=== PATIENT | male | born 1950 | race Hispanic/Latino ===

== ENCOUNTER 2019-09-24 12:57 | Emergency (ER) | payer MEDICARE ==
[2019-09-24 13:35] LABS: #Eosinphils 0.1 thou/uL (0.0-0.7); #Lymphocytes 2.1 thou/uL (1.20-3.40); #Monocytes 0.8 thou/uL (0.11-0.59); #Neutrophils 5.8 thou/uL (1.40-6.50); %Basophils 0.3 % (0.0-1.0); %Eosinophils 1.1 % (0.0-10.0); %Lymphocytes 24.3 % (21.0-51.0); %Monocytes 8.8 % (0.0-10.0); %Neutrophils 65.6 % (42.0-75.0); Hemoglobin 19.3 g/dL (14.0-18.0); Mean Corpuscular Hemoglobin 34.4 pg (27.0-31.0); Mean Platelet Volume 7.2 fL (7.4-10.4); Platelet Count 263 thou/uL (130-400); RBC Distribution Width 12.3 % (11.5-14.5); White Blood Cell (WBC) Count 8.8 thou/uL (4.8-10.8)
[2019-09-24 13:56] LABS: ALT (SGPT) 11 U/L (8-55); AST (SGOT) 18 U/L (5-34); Albumin 3.8 g/dL (3.4-4.8); Alkaline Phosphatase 119 U/L (40-110); Anion Gap 12 mmol/L (10-20); BUN (Urea Nitrogen) 18 mg/dL (8.4-25.7); Calc. Creatinine Clearance 0 mL/min (70-130); Calcium 8.9 mg/dL (7.8-10.44); Carbon Dioxide 29 mmol/L (23-31); Chloride 98 mmol/L (98-107); Estimated GFR-MDRD 84; Globulin 3.2 g/dL (2.4-3.5); Glucose 101 mg/dL (80-115); Potassium 3.1 mmol/L (3.5-5.1); Sodium 136 mmol/L (136-145)
--- NOTE | 2019-09-24 15:14 | RAD ---
XR Abdomen 1 View/KUB History: Abdominal pain and constipation. Inability to void Comparison: None. Findings: Paucity of bowel gas in the lower pelvis. Severe degenerative changes of the lumbar spine. Evaluation for free air is limited without an upright exam. Retained contrast versus inspissated stoo l within the ascending colon. Impression: 1. Relative paucity of bowel gas in the lower pelvis may reflect mass effect from distended urinary b ladder given history. 2. Nondilated ascending colon which contains either inspissated stool versus retained barium.
[2019-09-24 16:21] LABS: Bilirubin Negative (Negative); Blood, Urine Negative (Negative); Clarity Clear (Clear); Glucose, Urine (Dipstick) Normal (Negative); Ketone, Urine Negative (Negative); Leukocyte Negative Leu/uL (Negative); Nitrite Negative (Negative); Protein, Urine (Dipstick) Negative (Neg-Trace); Specific Gravity, Urine 1.017 (1.002-1.036); Urobilinogen Normal mg/dL (Less than 2)
== END 2019-09-24 18:08 | disposition home or self-care (01) ==
LOC: ERS 12:57
DX: R33.9 Retention of urine, unspecified (principal); I10 Essential (primary) hypertension; I48.91 Unspecified atrial fibrillation; F17.210 Nicotine dependence, cigarettes, uncomplicated; Z79.899 Other long term (current) drug therapy
CPT/HCPCS: 36415; 51702; 74018; 80053; 81003; 85025; 87086

== ENCOUNTER 2019-10-26 08:48 | Inpatient (IN) | payer MEDICARE, SELFPAY ==
[2019-10-26] MEDS ORDERED: diphenhydrAMINE 25 MG CAP PO PRN (09:25)
[2019-10-26] MEDS ORDERED: Acetaminophen 500 MG TAB PO PRN (09:25)
[2019-10-26] MEDS ORDERED: Morphine 2 MG/ML VIAL SLOW IVP PRN (09:25)
[2019-10-26] MEDS ORDERED: Ondansetron PF 4 MG/2 ML Vial IVP PRN (09:25)
[2019-10-26] MEDS ORDERED: Hyoscyamine Sulfate SL 0.125 mg Tablet SL PRN (09:25)
[2019-10-26] MEDS ORDERED: hydrALAZINE 20 MG/ML VIAL SLOW IVP PRN (09:25)
[2019-10-26] MEDS ORDERED: Oxybutynin 5 MG TAB PO PRN (09:25)
[2019-10-26] MEDS ORDERED: Phenazopyridine HCl 97.5 MG TABLET PO PRN (09:25)
[2019-10-26] MEDS ORDERED: cefTRIAXone\\ROCEPHIN 1 GM in Sodium Chloride 0.9% 100 ML IVPB SCH (09:45)
[2019-10-26] MEDS ORDERED: Phenazopyridine HCl 100 MG TAB PO PRN (09:45)
[2019-10-26] MEDS ORDERED: Sodium Chloride 0.9% 100 ML ONE (10:33)
[2019-10-26] MEDS ORDERED: cefTRIAXone\\ROCEPHIN 2 GM VIAL ONE (10:33)
[2019-10-26] MEDS ORDERED: Midazolam HCl 2 mg/2 ml Vial ONE (10:37)
[2019-10-26] MEDS ORDERED: Ketamine 50 MG/ML (10ML VIAL) ONE (10:37)
[2019-10-26] MEDS ORDERED: Fentanyl 100 MCG/2 ML VIAL ONE (10:37)
[2019-10-26] MEDS ORDERED: PROPOFOL 40 ML ONE (10:38)
[2019-10-26] MEDS ORDERED: Ondansetron PF 4 MG/2 ML Vial ONE (11:40)
--- NOTE | 2019-10-26 14:07 | OP ---
DATE OF PROCEDURE: 10/26/2019 SERVICE: Urology. POSTOPERATIVE DIAGNOSIS: Benign prostatic hypertrophy with urinary retention. POSTOP DIAGNOSIS: Benign prostatic hypertrophy with urinary retention. PROCEDURE PERFORMED: UroLift x8 implants. INDICATIONS FOR PROCEDURE: Mr. Yee is a 68-year-old male who initially presented to me with urinary retention fairly severely with very diminished ability to void. His prostate was hypertrophic both on imaging and by cystoscopy. The patient was able to void very small amounts only. He did not want to have an indwelling Suero catheter placed at the time of my visitation. I had recommended that we do some kind of procedural based treatment as Flomax alone was not sufficient to allow him to void to completion. I did tell him that given the amount of bladder damage he has already sustained there is no guarantee that even UroLift would improve his ability to void; however, this would be the simplest and quickest procedure for him to undergo especially with his untreated other comorbidities. We discussed the procedure in detail with risks and benefits and he has agreed to proceed forward. DESCRIPTION OF PROCEDURE: After identification of armband and verification of consent, the patient was brought back to the operating room where he underwent total intravenous anesthesia. He was then placed in dorsal lithotomy position and prepped and draped in the usual sterile fashion. After appropriate time-out, a 21-Algerian cystoscope with visual obturator was passed through the urethra into the bladder. The prostate was hypertrophic, had previously been encountered on outpatient cystoscopy. The bladder showed diffuse inflammation and submucosal hemorrhage from longstanding chronic bladder outlet obstruction. The bladder was thoroughly irrigated with approximately 1500 mL of normal saline through 3 separate irrigations to washout debris and retained urine within the bladder. Once thoroughly washed out, the visual obturator was switched out for the UroLift implantation device. The first implant was placed in the patient's left proximal prostate by compressing the prostate anteriorly and about 20 degrees laterally. The blue safety was released and the Nitinol needle released with the blue trigger. The tension was set and the capsular end piece placed with a olsen trigger. The UroLift was then advanced forward until the white line was seen in the keyhole and then the urethral end piece deployed with the blue release tab in the back. This was then repeated on the patient's right side towards the proximal prostate. Apical implants were also placed anteriorly on the patient's right and apically on the left and right. This resulted in a relatively nice anterior channel; however, there was still a significant amount of protrusion of the middle aspect of the prostate and the apical aspect of the prostate. Two additional implants were placed in the mid prostate in the left and right side. At the apical prostate, there was still bulging tissue below the area of the anterior implants. Therefore, a 4D type approach was performed where implants were stacked below the original implants apically, which resulted in nice opening of the apical tissue. At this point, the prostate was completely wide open. There was an excellent anterior channel from the verumontanum seen all the way into the bladder. The prostate was completely unobstructed. I did not feel any further implants were necessary. The bladder was left full and the cystoscope was removed. An 18-Algerian Suero catheter was placed with ease into the bladder and 10 mL of sterile water placed in the balloon. This was hooked up to gravity drainage. The patient was taken out of positioning, awakened, taken to PACU for recovery in stable condition. COMPLICATIONS: None. ESTIMATED BLOOD LOSS: Minimal. RETAINED TUBES AND DRAINS: 18-Algerian Suero catheter. SPECIMENS: None. IMPLANTS USED: Eight UroLift implants. DISPOSITION: The patient will be kept in the hospital as an inpatient to undergo his cardiac workup for his atrial fibrillation. He will get an echocardiogram. He will be discharged with his Suero catheter afterwards. We will plan a void trial in approximately 1 week. Job ID: [id number]
[2019-10-26 16:16] VITALS: BMI 18.8
[2019-10-26] MEDS: traMADol HCl 50 MG TAB PO PRN (18:34)
[2019-10-26] MEDS: Doxycycline 100 MG CAP PO SCH (20:26)
[2019-10-26] MEDS: Docusate 100 MG CAP PO SCH (20:27)
[2019-10-26] MEDS: Metoprolol Tartrate 50 MG TAB PO SCH (20:27)
--- NOTE | 2019-10-27 00:42 | CON ---
DATE OF CONSULTATION: 10/26/2019 REASON FOR CONSULTATION: Atrial fibrillation. HISTORY OF PRESENT ILLNESS: Mr. Yee is a 68-year-old man with a history of being unable to void and urinary retention. He underwent an UroLift surgery today. The patient did well with that. The patient was known to have atrial fibrillation. The patient states that he was in the hospital here at [facility] about five years ago, he said "21 days." He was placed on metoprolol, digoxin, and lisinopril. He has been maintained on that since then. He thinks he was on a blood thinner for a while, but at some point, stopped the blood thinner. There is a significant alcohol history, but the patient's family indicates he has not had much alcohol intake in the last month. He continues to smoke. No chest pain or pressure. MEDICATIONS: At home; he is taking; 1. Metoprolol 50 mg twice a day. 2. Digoxin, the listed dose is 0.25 mg a day. 3. Lisinopril 2.5 mg a day. He does miss occasional doses according to the family. The patient does have some exertional shortness of breath. No chest pain. says he has lost weight recently. SOCIAL HISTORY: Continues to smoke as mentioned. He has two daughters with him, they appear very supportive. PHYSICAL EXAMINATION: GENERAL: This is a 68-year-old gentleman. He is thin. VITAL SIGNS: 5 feet 7 inches, 120 pounds. Blood pressure 150/66 and pulse 80 and it is irregular. LUNGS: Clear. CARDIAC: Irregularly irregular. ABDOMEN: Soft and nontender. EXTREMITIES: Warm and dry. No clubbing or cyanosis. There is no peripheral edema. DIAGNOSTIC DATA: EKG reveals atrial fibrillation with controlled rate. LABORATORY DATA: Hemoglobin is 17.3. Creatinine is 0.67. Bilirubin is 2 and alkaline phosphatase 119. Echocardiogram was done. The ejection fraction appears to be in the 25% to 30% range, mildly dilated. Left atrium and right atrium are both dilated. ASSESSMENT: 1. Atrial fibrillation, appears longstanding probably for several years. 2. Depressed left ventricular function. It is also longstanding. 3. Recent urologic procedure with some hematuria, just had a UroLift procedure done today. PLAN: 1. At some point, I strongly consider anticoagulation, need to wait a couple weeks till the hematuria is resolved. I explained to the family the risk of embolic stroke is significant approximately 5% per year without blood thinners. 2. Discussed defibrillator implantation. The family states that they wish to make sure he is taking his medicines consistently before considering that. 3. Discussed LifeVest, but again this is a longstanding issue. I am also somewhat concerned as the rate is not controlled, could have an inappropriate defibrillator discharge with certainly do not want him to be shocked out of the fibrillation as he is not anticoagulated, if the patient does not indicate interest in the LifeVest. However, I think we should really consider the defibrillator implantation at the present time. The family wishes to hold off on that. They understand there is some risk of life-threatening arrhythmias. We have asked him to come see us in the office in a couple of weeks. Job ID: [id number]
[2019-10-27 08:01] VITALS: TEMP 98.6
[2019-10-27] MEDS: Docusate 100 MG CAP PO SCH (08:32)
[2019-10-27] MEDS: Metoprolol Tartrate 50 MG TAB PO SCH (08:32)
[2019-10-27] MEDS: Doxycycline 100 MG CAP PO SCH (08:32)
[2019-10-27] MEDS ORDERED: Lisinopril 2.5 MG TAB PO SCH (09:00)
[2019-10-27] MEDS ORDERED: Digoxin 0.25 MG TAB PO SCH ×2 (09:00)
[2019-10-27] MEDS ORDERED: Tamsulosin HCl 0.4 MG CAP PO SCH (09:00)
[2019-10-27 12:04] VITALS: BP 136/77
[2019-10-27] MEDS: traMADol HCl 50 MG TAB PO PRN (13:59)
--- NOTE | 2019-10-27 15:45 | PRG ---
DATE OF SERVICE: 10/27/2019 SUBJECTIVE: The patient states he did fine overnight. He has some mild pelvic pain. He has had irritation from his catheter. He wants his catheter to be taken out, but I told him that was not possible. Dr. Guerrero saw him in consultation in the hospital yesterday and found that he does indeed have atrial fibrillation, but no clot and depressed ejection fraction. He has recommended that he follow up with him in the office in about a week. OBJECTIVE: VITAL SIGNS: Temperature 98.6, pulse 79, respirations 14, blood pressure 101/67, and saturation 94% on room air. GENERAL: No apparent distress. Communicative and alert. CARDIOVASCULAR: Regular rate and rhythm. ABDOMEN: Soft, nontender, nondistended. Positive bowel sounds. CHEST: Nonlabored breathing. : Suero catheter in place with a translucent red urine. EXTREMITIES: No edema. ASSESSMENT/PLAN: A 68-year-old white male with benign prostatic hypertrophy and urinary retention, status post UroLift with 8 implants and diagnosis of atrial fibrillation with decreased ejection fraction, but no rapid ventricular response. From my standpoint, he can be discharged home. Dr. Guerrero has also approved his discharge. He will follow up with me in approximately 1 week for a void trial and Dr. Guerrero for cardiovascular treatment. It was recommended he will remain on all of his cardiac medications that he is currently on. However, we have elected to hold off on anticoagulation for now until his hematuria clears, which should be about 1 to 2 weeks. Job ID: [id number] [facility]
--- NOTE | 2019-10-27 16:38 | PQF ---
CLINICAL DOCUMENTATION CLARIFICATION FORM: Dear Dr. Oscar MONTERO Date: 10/27/2019 2796 Please exercise your independent, professional judgment in responding to the clarification form. Clinical indicators are provided on the bottom of this form for your review. Please check appropriate box(es): [ ] Protein Calorie Malnutrition: [ ] Mild [ ] Moderate [ ] Severe [ ] Other Malnutrition (please specify) __ [ ] Underweight without malnutrition [ ] Cachexia [ X ] Other diagnosis _EtoH abuse [ X ] Unable to determine In addition, please specify: Present on Admission (POA): [ X ] Yes [ ] No [ ] Unable to determine For continuity of documentation, please document condition throughout progress notes and discharge summary. Thank You. To be completed by CDI/Coding staff for physician review: CLINICAL INDICATORS - SIGNS / SYMPTOMS / LABS / RESULTS AND LOCATION IN 10/26 ASSESSMENT : NUTRITION DIAGNOSIS MALNUTRITION RELATED TO POOR ORAL INTAKE EVIDENCED BY MUSCLE WASTING TO TEMPLES, SHOULDER, ARMS, HANDS, AND FAT WASTING TO CHEEKS AND ARMS BMI 18.8 RISK FACTORS / RESULTS AND LOCATION IN MR CURRENT SMOKER, SIGNIFICANT HX OF ALCOHOL (CONSULT/ [facility]) 10/25 TREATMENT / RESULTS AND LOCATION IN MR DIETARY CONSULT 10/26 RECOMMENDS ENSURE ENLIVE TID Moderate Malnutrition (in acute illness) Energy Intake: <75% of estimated energy requirement for > 7 days Weight Loss: 1-2%/1 week; 5%/ 1 month; 7.5%/3 months Other: mild body fat loss; mild muscle mass loss; mild fluid accumulation; Severe Malnutrition (in acute illness) Energy Intake: = 50% of estimated energy requirement for = 5 days Weight Loss: >2%/1 week; >5%/1 month; >7.5%/3 months Other: moderate body fat loss; moderate muscle mass loss; moderate- severe fluid accumulation; 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 CDS Signature: GARETT GARCIA RN Phone #: [phone] Date: 2019 This is a permanent part of the [facility] Record [facility]
--- NOTE | 2019-10-30 06:28 | DIS ---
DATE OF ADMISSION: 10/26/2019 DATE OF DISCHARGE: 10/27/2019 ADMITTING DIAGNOSES: 1. Atrial fibrillation. 2. Benign prostatic hypertrophy with urinary retention. DISCHARGE DIAGNOSES: 1. Atrial fibrillation. 2. Benign prostatic hypertrophy with urinary retention. PROCEDURE PERFORMED: UroLift with 8 implants. Additional diagnostic procedures obtained, echocardiogram which demonstrated depressed ejection fraction and atrial fibrillation without clot. CONSULTATIONS: Obtained from Dr. Guerrero in Cardiology. BRIEF HISTORY: Mr. Yee is a 68-year-old male with BPH and urinary retention. He was found to be in atrial fibrillation on his preop labs. We recommended that he come in for cardiac workup as well as for his UroLift implantation, which was already scheduled. The full H and P can be found in the scanned portion of the [employer] System. HOSPITAL COURSE: The patient underwent his UroLift procedure uneventfully ( please see operative note for details). Postoperatively, patient was kept in the hospital with a Suero catheter. His urine was only mildly bloody. There were no clots. He underwent an echocardiogram per Dr. Guerrero's request, which demonstrated depressed ejection fraction and atrial fibrillation. Dr. Guerrero consulted with the patient and recommended that he should follow up as an outpatient and recommended he continue his current medications. We have elected to hold off anticoagulation on the current time given that the patient just had his UroLift procedure and is having gross hematuria, this should resolve probably within a week or so. Other than that, the patient did very well and Dr. Guerrero felt that he could go home and follow up as an outpatient. He was then discharged with his Suero catheter in place. DISPOSITION: Discharged to home with Suero. DISCHARGE CONDITION: Stable. DISCHARGE MEDICATIONS: Patient resume all of his home medications, but no aspirin or blood thinners at the current time. He should also remain on his tamsulosin. DISCHARGE INSTRUCTIONS: Were explained to the patient. He will follow up with me in approximately 1 week for a void trial and with Dr. Guerrero as well in about 1- 2 weeks for his heart management. Job ID: [id number] [facility]
== END 2019-10-27 14:15 | disposition home or self-care (01) | DRG 726 ==
LOC: SURG B 09:16
PROVIDERS: ADMIT Urology; ATTEND Urology
PROC: 0T7D8DZ Dilation of Urethra with Intraluminal Device, Via Natural or Artificial Opening Endoscopic (ICD-10-PCS; principal; 2019-10-26)
DX: N40.1 Benign prostatic hyperplasia with lower urinary tract symptoms (principal); I48.11 Longstanding persistent atrial fibrillation; R33.8 Other retention of urine; F10.10 Alcohol abuse, uncomplicated; R31.0 Gross hematuria
CPT/HCPCS: 93306; C1889; J0696; J2250; J2405; J2704; J3010; J3490; Q0163

== ENCOUNTER 2021-09-06 15:16 | Inpatient (IN) | payer MEDICARE ==
[~2021-09-06 15:16] MED LIST: Iopamidol-370 76% 500 ML 1 ML ONE
[2021-09-06 16:18] LABS: #Lymphocytes 0.5 thou/uL (1.20-3.40); #Monocytes 0.8 thou/uL (0.11-0.59); #Neutrophils 10.3 thou/uL (1.40-6.50); %Basophils 0.1 % (0.0-1.0); %Eosinophils 0.1 % (0.0-10.0); %Lymphocytes 4.4 % (21.0-51.0); %Monocytes 6.9 % (0.0-10.0); %Neutrophils 88.6 % (42.0-75.0); Hemoglobin 17.2 g/dL (14.0-18.0); Mean Corpuscular HGB CONC 33.9 g/dL (32.0-36.0); Mean Corpuscular Hemoglobin 35.7 pg (27.0-31.0); Mean Platelet Volume 7.2 fL (7.4-10.4); Platelet Count 240 thou/uL (130-400); RBC Distribution Width 12.3 % (11.5-14.5); Red Blood Cell (RBC) Count 4.81 mill/uL (4.70-6.10); White Blood Cell (WBC) Count 11.6 thou/uL (4.8-10.8)
[2021-09-06 16:28] LABS: INR-International Normal Ratio 1.3; Prothrombin Time 16.4 sec (12.0-14.7)
[2021-09-06 16:29] LABS: Acetaminophen Less than 10.0 mcg/mL (10.0-30.0); Alcohol Less than 10 mg/dL (Less than 10); Salicylate Less than 8.0 mg/dL (15.0-30.0)
[2021-09-06 16:31] LABS: ALT (SGPT) 10 U/L (8-55); AST (SGOT) 28 U/L (5-34); Albumin 3.3 g/dL (3.4-4.8); Alkaline Phosphatase 95 U/L (40-110); Anion Gap 22 mmol/L (10-20); BUN (Urea Nitrogen) 26 mg/dL (8.4-25.7); Bilirubin, Total 2.7 mg/dL (0.2-1.2); Calc. Creatinine Clearance 0 mL/min (70-130); Calcium 8.6 mg/dL (7.8-10.44); Carbon Dioxide 17 mmol/L (23-31); Chloride 99 mmol/L (98-107); Estimated GFR 97; Globulin 2.4 g/dL (2.4-3.5); Glucose 134 mg/dL (80-115); Potassium 4.5 mmol/L (3.5-5.1); Protein, Total 5.7 g/dL (5.8-8.1); Sodium 133 mmol/L (136-145)
[2021-09-06] MEDS ORDERED: Cefepime 2 GM VIAL ONE (17:29)
[2021-09-06] MEDS ORDERED: Vancomycin 1 GM/200 ML BAG ONE (17:29)
[2021-09-06] MEDS ORDERED: Ketorolac Tromethamine 30 MG/ML VIAL ONE (17:42)
[2021-09-06] MEDS ORDERED: Aspirin 300 MG Suppository ONE (18:49)
[2021-09-06 19:27] LABS: Bilirubin Negative (Negative); Blood, Urine 1+ (Negative); Clarity Clear (Clear); Glucose, Urine (Dipstick) 50 mg/dL (Negative); Ketone, Urine 40 mg/dL (Negative); Leukocyte 500 Leu/uL (Negative); Nitrite 1+ (Negative); Protein, Urine (Dipstick) 30 mg/dL (Neg-Trace); RBC/HPF 0-3 HPF (0-3); Specific Gravity, Urine 1.035 (1.002-1.036); Squamous Epithelial 0-3 HPF (0-3); Urobilinogen 3 mg/dL (Less than 2); pH, Urine 5.5 (5.0-9.0)
[2021-09-06 19:28] LABS: Bacteria/HPF 1+ HPF (None Seen)
[2021-09-06 19:30] LABS: Amphetamine Not Detected (NotDetected); Barbiturates Screen Not Detected (NotDetected); Benzodiazepine Screen Not Detected (NotDetected); Cocaine Metabolite Screen Not Detected (NotDetected); Methadone Not Detected (NotDetected); Methamphetamine Not Detected (NotDetected); Opiate Screen Detected (NotDetected); Oxycodone Screen Not Detected (NotDetected); Phencyclidine (PCP) Not Detected (NotDetected); THC/Cannabinoid Screen Not Detected (NotDetected); Tricyclic Screen Not Detected (NotDetected)
[2021-09-06] MEDS ORDERED: Ondansetron PF 4 MG/2 ML Vial IVP PRN (20:21)
[2021-09-06] MEDS ORDERED: Acetaminophen 650 MG Suppository PR PRN (20:21)
[2021-09-06] MEDS ORDERED: Ondansetron ODT 4 MG TAB PO PRN ×2 (20:21→20:56)
[2021-09-06] MEDS ORDERED: Lorazepam 1 MG TAB PO PRN (20:56)
[2021-09-06] MEDS ORDERED: Lorazepam 2 MG/ML VIAL IM PRN (20:56)
[2021-09-06] MEDS ORDERED: Electrolyte Replacement Protocol 1 EACH FS SCH (21:00)
[2021-09-06] MEDS ORDERED: Lorazepam (BATCHED) 2 MG/ML SYR SLOW IVP PRN (21:00)
[2021-09-06] MEDS ORDERED: Sodium Chloride 0.9% 1,000 ML IV SCH (21:15)
[2021-09-06] MEDS ORDERED: Piperacillin/Tazobactam 3.375 GM in Sodium Chloride 0.9% 100 ML IVPB SCH (21:45)
[2021-09-06 22:01] LABS: Magnesium 1.9 mg/dL (1.6-2.6); Phosphorus 3.2 mg/dL (2.3-4.7)
[2021-09-06] MEDS: Thiamine HCl 200 MG/2 ML VIAL SLOW IVP SCH (22:15)
[2021-09-06] MEDS: Piperacillin/Tazobactam 3.375 GM in Sodium Chloride 0.9% 100 ML IVPB SCH ×2 (22:17→22:20)
[2021-09-06] MEDS: Sodium Chloride 0.9% 1,000 ML IV SCH (22:18)
[2021-09-06] MEDS ORDERED: Multivit, Therapeutic 1 TAB PO SCH (22:30)
[2021-09-06] MEDS ORDERED: Folic Acid 1 MG TAB PO SCH (22:30)
[2021-09-06] MEDS ORDERED: Magnesium 2 GM/50 ML(in water) 2 GM in Premix Bag 1 BAG IVPB SCH (23:00)
[2021-09-06 23:52] LABS: SARS-CoV-2 NAA Rapid Test Not Detected (NotDetected)
[2021-09-07] MEDS: Piperacillin/Tazobactam 3.375 GM in Sodium Chloride 0.9% 100 ML IVPB SCH ×3 (02:26→17:10)
[2021-09-07] MEDS: Sodium Chloride 0.9% 1,000 ML IV SCH ×3 (06:33→22:00)
[2021-09-07 07:58] LABS: #Lymphocytes 1.1 thou/uL (1.20-3.40); #Monocytes 0.9 thou/uL (0.11-0.59); #Neutrophils 8.6 thou/uL (1.40-6.50); %Basophils 0.4 % (0.0-1.0); %Eosinophils 0.2 % (0.0-10.0); %Monocytes 8.1 % (0.0-10.0); %Neutrophils 81.3 % (42.0-75.0); Hemoglobin 15.4 g/dL (14.0-18.0); Mean Corpuscular HGB CONC 33.5 g/dL (32.0-36.0); Mean Corpuscular Hemoglobin 35.2 pg (27.0-31.0); Mean Platelet Volume 7.1 fL (7.4-10.4); Platelet Count 230 thou/uL (130-400); RBC Distribution Width 12.3 % (11.5-14.5); Red Blood Cell (RBC) Count 4.36 mill/uL (4.70-6.10); White Blood Cell (WBC) Count 10.5 thou/uL (4.8-10.8)
[2021-09-07 08:17] LABS: Anion Gap 17 mmol/L (10-20); BUN (Urea Nitrogen) 20 mg/dL (8.4-25.7); Calc. Creatinine Clearance 72 mL/min (70-130); Carbon Dioxide 21 mmol/L (23-31); Cardiac Risk 2.9 (Less than 4.5); Chloride 106 mmol/L (98-107); Cholesterol 70 mg/dl (< 200 Desired); Estimated GFR 100; Glucose 104 mg/dL (80-115); HDL Cholesterol 24 mg/dL (>60 Neg Risk); LDL Cholesterol, Calculated 35 mg/dL; Potassium 3.5 mmol/L (3.5-5.1); Sodium 140 mmol/L (136-145); Triglycerides 56 mg/dL (Less than 150)
[2021-09-07] MEDS: Folic Acid 1 MG TAB PO SCH (09:29)
[2021-09-07] MEDS: Multivit, Therapeutic 1 TAB PO SCH (09:29)
[2021-09-07] MEDS: Aspirin 300 MG Suppository PR SCH (09:29)
[2021-09-07] MEDS: Enoxaparin Sodium 40 MG/0.4 ML SYRINGE SC SCH (09:29)
[2021-09-07] MEDS ORDERED: Potassium Chloride 20 MEQ TAB PO SCH (10:00)
[2021-09-07 12:01] LABS: Lactic Acid 1.9 mmol/L (0.5-2.2)
[2021-09-07] MEDS ORDERED: Lorazepam 1 MG TAB PO PRN (20:56)
[2021-09-07] MEDS: Thiamine HCl 200 MG/2 ML VIAL SLOW IVP SCH (21:32)
[2021-09-08] MEDS: Piperacillin/Tazobactam 3.375 GM in Sodium Chloride 0.9% 100 ML IVPB SCH ×3 (01:46→18:40)
[2021-09-08 04:29] LABS: #Eosinphils 0.1 thou/uL (0.0-0.7); #Lymphocytes 1.4 thou/uL (1.20-3.40); #Monocytes 0.7 thou/uL (0.11-0.59); #Neutrophils 6.6 thou/uL (1.40-6.50); %Basophils 0.6 % (0.0-1.0); %Eosinophils 0.6 % (0.0-10.0); %Lymphocytes 15.5 % (21.0-51.0); %Monocytes 7.6 % (0.0-10.0); %Neutrophils 75.7 % (42.0-75.0); Hemoglobin 14.4 g/dL (14.0-18.0); Mean Corpuscular HGB CONC 34.1 g/dL (32.0-36.0); Mean Corpuscular Hemoglobin 35.7 pg (27.0-31.0); Platelet Count 220 thou/uL (130-400); RBC Distribution Width 12.3 % (11.5-14.5); Red Blood Cell (RBC) Count 4.02 mill/uL (4.70-6.10); White Blood Cell (WBC) Count 8.7 thou/uL (4.8-10.8)
[2021-09-08 04:47] LABS: ALT (SGPT) 12 U/L (8-55); AST (SGOT) 27 U/L (5-34); Alkaline Phosphatase 69 U/L (40-110); Anion Gap 15 mmol/L (10-20); BUN (Urea Nitrogen) 14 mg/dL (8.4-25.7); Bilirubin, Total 2.1 mg/dL (0.2-1.2); Calc. Creatinine Clearance 82 mL/min (70-130); Calcium 8.1 mg/dL (7.8-10.44); Carbon Dioxide 19 mmol/L (23-31); Chloride 108 mmol/L (98-107); Estimated GFR 104; Globulin 2.4 g/dL (2.4-3.5); Glucose 96 mg/dL (80-115); Potassium 3.6 mmol/L (3.5-5.1); Protein, Total 5.4 g/dL (5.8-8.1); Sodium 138 mmol/L (136-145)
[2021-09-08] MEDS ORDERED: Magnesium 2 GM/50 ML(in water) 2 GM in Premix Bag 1 BAG IVPB SCH (05:00)
[2021-09-08] MEDS ORDERED: Aspirin 325 MG TAB ONE (10:19)
[2021-09-08] MEDS: Folic Acid 1 MG TAB PO SCH (10:23)
[2021-09-08] MEDS: Multivit, Therapeutic 1 TAB PO SCH (10:24)
[2021-09-08] MEDS: Enoxaparin Sodium 40 MG/0.4 ML SYRINGE SC SCH (10:24)
[2021-09-08] MEDS: Aspirin 300 MG Suppository PR SCH (11:06)
[2021-09-08] MEDS: Sodium Chloride 0.9% 1,000 ML IV SCH ×2 (15:19→15:27)
[2021-09-08] MEDS ORDERED: Lorazepam 1 MG TAB PO PRN (20:56)
[2021-09-08] MEDS ORDERED: Benzocaine (Dental) 7 GM TUBE TOP PRN (20:58)
[2021-09-08] MEDS ORDERED: hydrOXYzine 25 MG TAB PO SCH (21:30)
[2021-09-08] MEDS: Lorazepam 0.5 MG TAB PO SCH (21:54)
[2021-09-08] MEDS: Thiamine HCl 200 MG/2 ML VIAL SLOW IVP SCH (21:54)
[2021-09-08] MEDS: Metoprolol Tartrate 50 MG TAB PO SCH (21:54)
[2021-09-08] MEDS: Atorvastatin Calcium 40 MG TAB PO SCH (21:54)
[2021-09-09] MEDS: Sodium Chloride 0.9% 1,000 ML IV SCH ×2 (00:14→16:25)
[2021-09-09] MEDS: Lorazepam 0.5 MG TAB PO SCH ×4 (02:59→19:08)
[2021-09-09] MEDS: Piperacillin/Tazobactam 3.375 GM in Sodium Chloride 0.9% 100 ML IVPB SCH ×2 (02:59→11:05)
[2021-09-09 04:31] LABS: #Eosinphils 0.1 thou/uL (0.0-0.7); #Lymphocytes 1.5 thou/uL (1.20-3.40); #Monocytes 0.6 thou/uL (0.11-0.59); #Neutrophils 4.5 thou/uL (1.40-6.50); %Basophils 0.3 % (0.0-1.0); %Eosinophils 1.5 % (0.0-10.0); %Lymphocytes 22.7 % (21.0-51.0); %Monocytes 8.4 % (0.0-10.0); %Neutrophils 67.1 % (42.0-75.0); Hemoglobin 13.9 g/dL (14.0-18.0); Mean Corpuscular HGB CONC 32.8 g/dL (32.0-36.0); Mean Corpuscular Hemoglobin 35.2 pg (27.0-31.0); Mean Platelet Volume 7.2 fL (7.4-10.4); Platelet Count 206 thou/uL (130-400); RBC Distribution Width 12.2 % (11.5-14.5); Red Blood Cell (RBC) Count 3.94 mill/uL (4.70-6.10); White Blood Cell (WBC) Count 6.8 thou/uL (4.8-10.8)
[2021-09-09 05:00] LABS: ALT (SGPT) 10 U/L (8-55); AST (SGOT) 20 U/L (5-34); Albumin 2.7 g/dL (3.4-4.8); Alkaline Phosphatase 69 U/L (40-110); Anion Gap 10 mmol/L (10-20); BUN (Urea Nitrogen) 8 mg/dL (8.4-25.7); Bilirubin, Total 1.6 mg/dL (0.2-1.2); Calc. Creatinine Clearance 86 mL/min (70-130); Calcium 7.7 mg/dL (7.8-10.44); Carbon Dioxide 22 mmol/L (23-31); Chloride 106 mmol/L (98-107); Estimated GFR 106; Globulin 2.2 g/dL (2.4-3.5); Glucose 86 mg/dL (80-115); Potassium 3.1 mmol/L (3.5-5.1); Protein, Total 4.9 g/dL (5.8-8.1); Sodium 135 mmol/L (136-145)
[2021-09-09] MEDS ORDERED: Magnesium 2 GM/50 ML(in water) 2 GM in Premix Bag 1 BAG IVPB SCH (08:00)
[2021-09-09] MEDS ORDERED: Potassium Chloride 20 MEQ TAB PO SCH (08:00)
[2021-09-09] MEDS: Aspirin 325 MG TAB PO SCH (09:06)
[2021-09-09] MEDS: Folic Acid 1 MG TAB PO SCH (09:07)
[2021-09-09] MEDS: Enoxaparin Sodium 40 MG/0.4 ML SYRINGE SC SCH (09:07)
[2021-09-09] MEDS: Lisinopril 5 MG TAB PO SCH (09:07)
[2021-09-09] MEDS: Multivit, Therapeutic 1 TAB PO SCH (09:08)
[2021-09-09] MEDS: Metoprolol Tartrate 50 MG TAB PO SCH ×2 (09:08→21:00)
[2021-09-09] MEDS: Potassium Chloride 20 MEQ in Premix Bag 1 BAG IVPB SCH (19:08)
[2021-09-09] MEDS ORDERED: Lorazepam 0.5 MG TAB PO PRN (20:56)
[2021-09-09] MEDS: Thiamine 100 MG TAB PO SCH (21:00)
[2021-09-09] MEDS: Atorvastatin Calcium 40 MG TAB PO SCH (21:00)
[2021-09-10] MEDS: Potassium Chloride 20 MEQ in Premix Bag 1 BAG IVPB SCH (00:51)
[2021-09-10] MEDS: Sodium Chloride 0.9% 1,000 ML IV SCH ×2 (06:02→17:36)
[2021-09-10 09:03] VITALS: BMI 21.4
[2021-09-10 09:36] LABS: Anion Gap 13 mmol/L (10-20); BUN (Urea Nitrogen) 5 mg/dL (8.4-25.7); Calc. Creatinine Clearance 99 mL/min (70-130); Calcium 8.2 mg/dL (7.8-10.44); Carbon Dioxide 23 mmol/L (23-31); Chloride 102 mmol/L (98-107); Estimated GFR 110; Glucose 87 mg/dL (80-115); Potassium 3.6 mmol/L (3.5-5.1); Sodium 134 mmol/L (136-145)
[2021-09-10] MEDS: Metoprolol Tartrate 50 MG TAB PO SCH ×2 (09:40→21:14)
[2021-09-10] MEDS: Aspirin 325 MG TAB PO SCH (09:40)
[2021-09-10] MEDS: Lisinopril 5 MG TAB PO SCH (09:40)
[2021-09-10] MEDS: Multivit, Therapeutic 1 TAB PO SCH (09:40)
[2021-09-10] MEDS: Folic Acid 1 MG TAB PO SCH (09:40)
[2021-09-10] MEDS: Enoxaparin Sodium 40 MG/0.4 ML SYRINGE SC SCH (09:40)
[2021-09-10] MEDS: Thiamine 100 MG TAB PO SCH (21:14)
[2021-09-10] MEDS: Atorvastatin Calcium 40 MG TAB PO SCH (21:14)
[2021-09-11] MEDS: Acetaminophen 325 MG TAB PO PRN ×2 (00:40→23:33)
[2021-09-11] MEDS: Sodium Chloride 0.9% 1,000 ML IV SCH ×4 (00:45→23:33)
[2021-09-11 08:22] LABS: #Lymphocytes 0.5 thou/uL (1.20-3.40); #Monocytes 0.8 thou/uL (0.11-0.59); #Neutrophils 6.4 thou/uL (1.40-6.50); %Basophils 0.4 % (0.0-1.0); %Eosinophils 0.3 % (0.0-10.0); %Lymphocytes 6.4 % (21.0-51.0); %Monocytes 9.7 % (0.0-10.0); %Neutrophils 83.2 % (42.0-75.0); Hemoglobin 14.9 g/dL (14.0-18.0); Mean Corpuscular HGB CONC 33.6 g/dL (32.0-36.0); Mean Corpuscular Hemoglobin 34.6 pg (27.0-31.0); Mean Platelet Volume 6.5 fL (7.4-10.4); Platelet Count 192 thou/uL (130-400); RBC Distribution Width 12.4 % (11.5-14.5); Red Blood Cell (RBC) Count 4.31 mill/uL (4.70-6.10); White Blood Cell (WBC) Count 7.7 thou/uL (4.8-10.8)
[2021-09-11 08:44] LABS: ALT (SGPT) 11 U/L (8-55); AST (SGOT) 25 U/L (5-34); Albumin 2.8 g/dL (3.4-4.8); Alkaline Phosphatase 83 U/L (40-110); Anion Gap 11 mmol/L (10-20); BUN (Urea Nitrogen) 5 mg/dL (8.4-25.7); Bilirubin, Total 1.5 mg/dL (0.2-1.2); Calc. Creatinine Clearance 85 mL/min (70-130); Calcium 7.8 mg/dL (7.8-10.44); Carbon Dioxide 24 mmol/L (23-31); Chloride 101 mmol/L (98-107); Estimated GFR 105; Globulin 2.5 g/dL (2.4-3.5); Glucose 97 mg/dL (80-115); Protein, Total 5.3 g/dL (5.8-8.1); Sodium 133 mmol/L (136-145)
[2021-09-11 08:47] LABS: Potassium 2.8 mmol/L (3.5-5.1)
[2021-09-11] MEDS: Metoprolol Tartrate 50 MG TAB PO SCH ×2 (09:33→20:50)
[2021-09-11] MEDS: Aspirin 325 MG TAB PO SCH (09:33)
[2021-09-11] MEDS: Multivit, Therapeutic 1 TAB PO SCH (09:33)
[2021-09-11] MEDS: Lisinopril 5 MG TAB PO SCH (09:34)
[2021-09-11] MEDS: Folic Acid 1 MG TAB PO SCH (09:34)
[2021-09-11] MEDS: Enoxaparin Sodium 40 MG/0.4 ML SYRINGE SC SCH (09:34)
[2021-09-11] MEDS: Potassium Chloride 20 MEQ TAB PO SCH ×2 (11:51→17:00)
[2021-09-11] MEDS ORDERED: Potassium Chloride 20 MEQ TAB PO SCH (12:15)
[2021-09-11] MEDS: Potassium Chloride 20 MEQ in Premix Bag 1 BAG IVPB SCH ×2 (13:26→14:53)
[2021-09-11 13:56] LABS: Magnesium 1.6 mg/dL (1.6-2.6)
[2021-09-11 19:38] LABS: Bacteria/HPF None Seen HPF (None Seen); Bilirubin Negative (Negative); Blood, Urine Trace (Negative); Clarity Clear (Clear); Glucose, Urine (Dipstick) 30 mg/dL (Negative); Ketone, Urine 60 mg/dL (Negative); Leukocyte Negative Leu/uL (Negative); Nitrite Negative (Negative); Protein, Urine (Dipstick) 20 mg/dL (Neg-Trace); RBC/HPF 0-3 HPF (0-3); Specific Gravity, Urine 1.022 (1.002-1.036); Squamous Epithelial 0-3 HPF (0-3); pH, Urine 5.5 (5.0-9.0)
[2021-09-11 19:46] LABS: Urine Culture Reflex Yes Yes
[2021-09-11] MEDS ORDERED: Magnesium 2 GM/50 ML(in water) 2 GM in Premix Bag 1 BAG IVPB SCH (20:00)
[2021-09-11] MEDS: Atorvastatin Calcium 40 MG TAB PO SCH (20:50)
[2021-09-11] MEDS: Thiamine 100 MG TAB PO SCH (20:50)
[2021-09-12] MEDS ORDERED: Guaifenesin DM 100-10/5 ML UDCUP PO PRN (02:26)
[2021-09-12 08:00] LABS: Anion Gap 14 mmol/L (10-20); BUN (Urea Nitrogen) 8 mg/dL (8.4-25.7); Calc. Creatinine Clearance 90 mL/min (70-130); Calcium 7.7 mg/dL (7.8-10.44); Carbon Dioxide 21 mmol/L (23-31); Chloride 104 mmol/L (98-107); Estimated GFR 106; Glucose 109 mg/dL (80-115); Magnesium 1.9 mg/dL (1.6-2.6); Potassium 3.5 mmol/L (3.5-5.1); Sodium 135 mmol/L (136-145)
[2021-09-12] MEDS ORDERED: Magnesium 2 GM/50 ML(in water) 2 GM in Premix Bag 1 BAG IVPB SCH (10:00)
[2021-09-12] MEDS ORDERED: Potassium Chloride 20 MEQ TAB PO SCH (10:00)
[2021-09-12] MEDS: Aspirin 325 MG TAB PO SCH (10:07)
[2021-09-12] MEDS: Acetaminophen 325 MG TAB PO PRN (10:07)
[2021-09-12] MEDS: Enoxaparin Sodium 40 MG/0.4 ML SYRINGE SC SCH (10:07)
[2021-09-12] MEDS: Metoprolol Tartrate 50 MG TAB PO SCH (10:07)
[2021-09-12] MEDS: Lisinopril 5 MG TAB PO SCH (10:07)
[2021-09-12] MEDS: Folic Acid 1 MG TAB PO SCH (10:07)
[2021-09-12] MEDS: Multivit, Therapeutic 1 TAB PO SCH (10:07)
[2021-09-12] MEDS: Sodium Chloride 0.9% 1,000 ML IV SCH (10:08)
[2021-09-12 11:54] VITALS: BP 138/70; TEMP 98.8
== END 2021-09-12 15:35 | DRG 64 ==
LOC: ERS 15:27 → 2NO 19:52
PROVIDERS: ADMIT Internal Medicine; ATTEND Internal Medicine
DX: I63.512 Cerebral infarction due to unspecified occlusion or stenosis of left middle cerebral artery (principal); A41.9 Sepsis, unspecified organism; I63.232 Cerebral infarction due to unspecified occlusion or stenosis of left carotid arteries; N39.0 Urinary tract infection, site not specified; G81.91 Hemiplegia, unspecified affecting right dominant side; J98.11 Atelectasis; I48.21 Permanent atrial fibrillation; E87.2 Acidosis; Z20.822 Contact with and (suspected) exposure to COVID-19; R29.719 NIHSS score 19; R47.01 Aphasia; R29.810 Facial weakness; F41.9 Anxiety disorder, unspecified; K04.7 Periapical abscess without sinus; E04.1 Nontoxic single thyroid nodule; I10 Essential (primary) hypertension; F10.20 Alcohol dependence, uncomplicated; R21 Rash and other nonspecific skin eruption; R00.1 Bradycardia, unspecified; N40.1 Benign prostatic hyperplasia with lower urinary tract symptoms; R33.8 Other retention of urine; E87.6 Hypokalemia; F17.200 Nicotine dependence, unspecified, uncomplicated; Z91.19 Patient's noncompliance with other medical treatment and regimen; Z79.899 Other long term (current) drug therapy; Z90.49 Acquired absence of other specified parts of digestive tract; Z98.890 Other specified postprocedural states; Z88.8 Allergy status to other drugs, medicaments and biological substances
CPT/HCPCS: 36415; 36416; 70450; 70496; 70498; 70551; 71045; 74230; 76536; 80048; 80053; 80061; 80306; 80307; 81001; 81003; 81015; 82550; 83605; 83735; 84100; 84145; 84484; 85025; 85610; 85730; 87040; 87086; 87798; 93005; 93306; 94760; 96361; 96365; 96367; 96375; J0692; J1650; J1885; J2543; J3370; J3411; J3475; J3480; J3490; J7050; Q9967; U0002

== ENCOUNTER 2021-10-12 13:26 | Inpatient (IN) | payer MEDICARE ==
[2021-10-12] MEDS ORDERED: Cefepime 2 GM VIAL ONE (13:52)
[2021-10-12] MEDS ORDERED: Vancomycin 1 GM/200 ML BAG ONE (13:52)
[2021-10-12 14:13] LABS: Hemoglobin 16.6 g/dL (14.0-18.0); Mean Corpuscular HGB CONC 31.4 g/dL (32.0-36.0); Mean Corpuscular Hemoglobin 33.6 pg (27.0-31.0); Mean Platelet Volume 8.3 fL (7.4-10.4); Platelet Count 329 thou/uL (130-400); RBC Distribution Width 13.9 % (11.5-14.5); Red Blood Cell (RBC) Count 4.93 mill/uL (4.70-6.10); White Blood Cell (WBC) Count 21.7 thou/uL (4.8-10.8)
[2021-10-12 14:21] LABS: INR-International Normal Ratio 1.4; Prothrombin Time 17.5 sec (12.0-14.7)
[2021-10-12 14:22] LABS: PTT 34.5 sec (22.9-36.1)
[2021-10-12 14:29] LABS: Band 13 % (5-11); Lymphocytes 8 % (21-51); MDiff Complete? YES; Macrocytosis SLIGHT = 6-15 cells (100X) (0-5/hpf); Monocytes 4 % (0-10); Myelocyte 1 % (0-0); Neutrophil 74 % (42-75); Platelet Morphology Comment Appears Adequate
[2021-10-12 14:33] LABS: ALT (SGPT) 15 U/L (8-55); AST (SGOT) 17 U/L (5-34); Albumin 2.6 g/dL (3.4-4.8); Alkaline Phosphatase 102 U/L (40-110); Anion Gap 22 mmol/L (10-20); BUN (Urea Nitrogen) 103 mg/dL (8.4-25.7); Bilirubin, Total 1.1 mg/dL (0.2-1.2); Calc. Creatinine Clearance 0 mL/min (70-130); Calcium 8.2 mg/dL (7.8-10.44); Carbon Dioxide 16 mmol/L (23-31); Chloride 125 mmol/L (98-107); Estimated GFR 15; Globulin 3.2 g/dL (2.4-3.5); Glucose 93 mg/dL (80-115); Protein, Total 5.8 g/dL (5.8-8.1); Sodium 156 mmol/L (136-145)
[2021-10-12 14:35] LABS: Clarity Extra Turbid (Clear)
[2021-10-12 14:45] LABS: Analyzer IN Cardio ER; Base Excess (BEa) -11.8 mEq/L (-2.0 to +3.0); Calcium, Ionized (arterial) 1.08 mmol/L (1.12-1.30); Carboxyhemoglobin (COHb) 0.3 gm% (0.0-3.0); Hemoglobin (Hb) 17.3 g/dL (14.0-18.0); O2 Tension (PaO2), arterial 149.5 mmHg (> 70.0); Potassium - ABG Lab 5.29 mmol/L (3.70-5.30); pH, Arterial 7.31 (7.35-7.45)
[2021-10-12 14:46] LABS: ALV-art Gradient 77.055 mmHg (0-20); CO2 Tension 24.1 mmHg (35.0-45.0); Puncture Site RRA
[2021-10-12 14:46] LABS: Specific Gravity, Urine 1.026 (1.002-1.036)
[2021-10-12 14:47] LABS: Bilirubin Unable to Interpret (Negative); Blood, Urine Unable to Interpret (Negative); Glucose, Urine (Dipstick) Unable to Interpret mg/dL (Negative); Ketone, Urine Unable to Interpret mg/dL (Negative); Leukocyte Unable to Interpret Leu/uL (Negative); Nitrite Unable to Interpret (Negative); Protein, Urine (Dipstick) Unable to Interpret mg/dL (Neg-Trace); Urobilinogen UNABLE TO INTERPRET mg/dL (Less than 2)
[2021-10-12 14:48] LABS: Squamous Epithelial 21-50 HPF (0-3)
[2021-10-12 14:49] LABS: Bacteria/HPF 2+ HPF (None Seen)
[2021-10-12 15:22] LABS: SARS-CoV-2 NAA Rapid Test DETECTED (NotDetected)
[2021-10-12] MEDS ORDERED: Calcium Chloride 1 GM/10 ML Abboject SYRINGE ONE ×3 (15:28→15:30)
[2021-10-12] MEDS ORDERED: Dextrose 50% Abboject 50 ML SYRINGE ONE (15:28)
[2021-10-12] MEDS ORDERED: NOREPINEPHRINE 8 MG/250 ML-D5W 250 ML ONE (16:06)
[2021-10-12] MEDS ORDERED: NOREPINEPHRINE 8 MG/250 ML-D5W 250 ML IVPB SCH (16:38)
[2021-10-12] MEDS ORDERED: Ondansetron PF 4 MG/2 ML Vial IVP PRN (16:38)
[2021-10-12] MEDS ORDERED: Ondansetron ODT 4 MG TAB PO PRN (16:38)
[2021-10-12] MEDS ORDERED: Acetaminophen 500 MG TAB PO PRN (16:38)
[2021-10-12] MEDS ORDERED: Communication Order-Pharmacy FS SCH (16:38)
[2021-10-12] MEDS ORDERED: Acetaminophen 650 MG Suppository PR PRN (16:38)
[2021-10-12] MEDS ORDERED: Digoxin 0.5 MG/2 ML AMP SLOW IVP SCH (16:45)
[2021-10-12 17:24] VITALS: BP 122/88
[2021-10-12 17:26] VITALS: BMI 17.5
[2021-10-12 17:47] LABS: Anion Gap 20 mmol/L (10-20); BUN (Urea Nitrogen) 89 mg/dL (8.4-25.7); Calc. Creatinine Clearance 13 mL/min (70-130); Calcium 8.5 mg/dL (7.8-10.44); Carbon Dioxide 13 mmol/L (23-31); Estimated GFR 18; Glucose 169 mg/dL (80-115); Potassium 5.5 mmol/L (3.5-5.1); Sodium 154 mmol/L (136-145)
[2021-10-12] MEDS: Sodium Chloride 0.9% 1,000 ML IV SCH ×2 (17:53→22:52)
[2021-10-12 18:03] LABS: Chloride 127 mmol/L (98-107)
[2021-10-12] MEDS: Albumin 25% 25 GM/100 ML BOT IVPB SCH (18:22)
[2021-10-12] MEDS: Hydrocortisone Sod Succ/PF 100 mg/2 ml Vial IVP SCH (18:23)
[2021-10-12] MEDS: metroNIDAZOLE 500 MG in Premix Bag 1 BAG IVPB SCH (18:23)
[2021-10-12] MEDS: Pantoprazole 40 MG VIAL IVP SCH ×2 (20:55→21:11)
[2021-10-12] MEDS ORDERED: Morphine 2 MG/ML VIAL SLOW IVP PRN (23:57)
[2021-10-13] MEDS: Albumin 25% 25 GM/100 ML BOT IVPB SCH ×2 (00:33→06:31)
[2021-10-13] MEDS: Hydrocortisone Sod Succ/PF 100 mg/2 ml Vial IVP SCH ×2 (00:34→06:22)
[2021-10-13] MEDS ORDERED: Cefepime 1 GM in Sodium Chloride 0.9% 100 ML IVPB SCH (02:00)
[2021-10-13] MEDS: metroNIDAZOLE 500 MG in Premix Bag 1 BAG IVPB SCH ×2 (02:36→09:44)
[2021-10-13] MEDS: Sodium Chloride 0.9% 1,000 ML IV SCH (06:31)
[2021-10-13] MEDS: Morphine 2 MG/ML VIAL SLOW IVP PRN ×3 (07:51→12:58)
[2021-10-13] MEDS: Pantoprazole 40 MG VIAL IVP SCH (07:52)
[2021-10-13] MEDS ORDERED: Vancomycin HCl 1 GM in Sodium Chloride 0.9% 250 ML 300 ML IVPB SCH (09:00)
[2021-10-13] MEDS ORDERED: Enoxaparin Sodium 30 MG/0.3 ML SYRINGE SC SCH (09:00)
[2021-10-13 12:20] VITALS: TEMP 97.7
== END 2021-10-13 13:40 | disposition hospice, home (50) | DRG 871 ==
LOC: ERS 13:26 → CCU 15:27
PROVIDERS: ADMIT Family Medicine; ATTEND Family Medicine
PROC: 3E03329 Introduction of Other Anti-infective into Peripheral Vein, Percutaneous Approach (ICD-10-PCS; principal; 2021-10-12)
PROC: 3E033XZ Introduction of Vasopressor into Peripheral Vein, Percutaneous Approach (ICD-10-PCS; 2021-10-12)
PROC: 30233J1 Transfusion of Nonautologous Serum Albumin into Peripheral Vein, Percutaneous Approach (ICD-10-PCS; 2021-10-12)
DX: A41.2 Sepsis due to unspecified staphylococcus (principal); E43 Unspecified severe protein-calorie malnutrition; L89.303 Pressure ulcer of unspecified buttock, stage 3; R65.21 Severe sepsis with septic shock; U07.1 COVID-19; G93.41 Metabolic encephalopathy; N17.9 Acute kidney failure, unspecified; I69.351 Hemiplegia and hemiparesis following cerebral infarction affecting right dominant side; Z68.1 Body mass index [BMI] 19.9 or less, adult; I48.20 Chronic atrial fibrillation, unspecified; R64 Cachexia; E87.0 Hyperosmolality and hypernatremia; Z51.5 Encounter for palliative care; Z66 Do not resuscitate; I10 Essential (primary) hypertension; A41.59 Other Gram-negative sepsis; N40.0 Benign prostatic hyperplasia without lower urinary tract symptoms; E87.5 Hyperkalemia; R13.10 Dysphagia, unspecified; E86.0 Dehydration; Z90.49 Acquired absence of other specified parts of digestive tract; I69.391 Dysphagia following cerebral infarction; Z88.8 Allergy status to other drugs, medicaments and biological substances; Z98.890 Other specified postprocedural states
CPT/HCPCS: 36415; 36416; 36600; 71045; 80053; 81003; 81015; 82805; 83605; 83880; 84145; 84484; 85025; 85610; 85730; 87040; 87077; 87086; 87149; 87186; 93005; 93010; 94760; C9113; J0692; J1650; J2270; J3370; J3490; J7050; J7999; P9047; U0002